=== PATIENT | female | born 1940 | race Caucasian/White ===

== ENCOUNTER 2018-04-08 17:11 | Inpatient (IN) ==
--- NOTE | 2018-04-08 17:53 | Emergency Department Note ---
Disposition Clinical Impression: Urinary tract infection, Delirium Disposition: Still a Patient Condition: Fair Referrals: Gabrielle Sawyer MD [Primary Care Provider] - Forms: ED Satisfaction Letter General Adult HPI - General Chief complaint: ED Urogenital-Female Stated complaint: "UTI sent by " Time Seen by Provider: 04/08/18 17:36 - History of Present Illness Pain Scale: 6 - Related Data Allergies Allergy/AdvReac Type Severity Reaction Status Date / Time No Known Allergies Allergy Verified 04/08/18 17:22 Course Vital Signs Temperature 98.3 F 04/08/18 17:16 Pulse Rate 93 04/08/18 17:16 Respiratory Rate 22 04/08/18 17:16 Blood Pressure 191/70 04/08/18 17:16 O2 Sat by Pulse Oximetry 97 04/08/18 17:16 Temperature 98.3 F 04/08/18 17:16 Pulse Rate 93 04/08/18 17:16 Respiratory Rate 22 04/08/18 17:16 Blood Pressure 191/70 04/08/18 17:16 O2 Sat by Pulse Oximetry 97 04/08/18 17:16 Oxygen Delivery Oxygen Delivery Room Air Medical Decision Making - Lab Data Lab Results 04/08/18 Range/Units 17:54 Urine Color Dark Yellow (Yellow) Urine Clarity Cloudy A (Clear) Urine pH 6.0 (5.0-8.0) pH Units Ur Specific [place] > 1.030 H (1.010-1.025) Urine Protein 30 H (Neg-Trace) mg/dL Urine Glucose (UA) Normal (Normal) mg/dL Urine Ketones Trace H (Negative) mg/dL Urine Blood Negative (Negative) Urine Nitrite Negative (Negative) Urine Bilirubin Small H (Negative) Urine Urobilinogen Normal (Normal) mg/dL Ur Leukocyte Esterase Large H (Negative) Urine Microscopic RBC 3-5 H (0-3) per hpf Urine Microscopic WBC 50-100 H (0-3) per hpf Ur Squamous Epith Cells Many H (None-Few) per lpf Urine Bacteria Few (None-Few) per hpf Hyaline Casts Few (None-Few) per lpf Attestation Statement - Attestation Attestation: I examined this patient and my medical decision-making was reviewed with the Resident Physician. I agree with the documented findings, disposition and treatment plan as described except to the extent set forth below. [id number] time provided Patient arrives in the care of her family with confusion. She was sent at the recommendation of her primary care provider. It was suspected that she has a UTI. The patient appears in no acute distress on arrival to the medical treatment area 18:24: Care will be endorsed to the oncoming physician at 19:00 pending labs. I anticipate this patient requiring admission due to confusion secondary to UTI.
--- NOTE | 2018-04-08 18:02 | Emergency Department Note ---
Disposition Clinical Impression: Delirium Urinary tract infection Qualifiers: Urinary tract infection type: site unspecified Hematuria presence: without hematuria Qualified Code(s): N39.0 - Urinary tract infection, site not specified Disposition: Still a Patient Condition: Fair Forms: ED Satisfaction Letter Time of Disposition: 18:25 General Adult HPI - General Chief complaint: ED Urogenital-Female Stated complaint: "UTI sent by " Time Seen by Provider: 04/08/18 17:36 Nursing Notes Reviewed: Yes Vital Signs Reviewed: Yes - History of Present Illness HPI Narrative: 77-year-old female presents from primary care provider's office for continued evaluation of confusion and suspected UTI. Patient lives at home with her daughter who is her primary nuclear station operator. History of dementia as well as diabetes. Per patient's daughter, she is more confused now than typical. Patient notes pain with urination over last several days with bilateral flank and CVA pain. No fevers. She does have generalized weakness which she attributes to her fall from standing to knees 4 days ago; no head trauma, no loss of consciousness. Patient also has a cough. No history of TIA, CVA, ACS, COPD. ROS: Positive: As above Negative: Fevers, chills, nausea, vomiting, chest pains, palpitations, abdominal pain, change in bowel habits Pain Scale: 6 - Related Data Allergies Allergy/AdvReac Type Severity Reaction Status Date / Time No Known Allergies Allergy Verified 04/08/18 17:22 All systems ED: reviewed and negative except as stated. Review of Systems: As Per HPI Physical Exam Vital Signs Reviewed General: Patient is alert, oriented, and in no acute distress. She is pacing around the room with her walker. Head: atraumatic, normocephalic Eye: normal appearance, PERRL, EOMI, no scleral icterus, no conjunctival injection ENT: mucous membranes moist, normal external ear exam Neck: normal inspection, trachea midline, full ROM Chest: normal inspection, symmetric chest rise Respiratory: Good respiratory effort. Bilateral breath sounds are clear without wheezing, crackles, or rhonchi. Cardiovascular: Regular rate and rhythm. No clicks, rubs, gallops, or murmors. Normal heart sounds. Abdomen: Bowel sounds present normoactive x-4 quadrants. Abdomen is soft, nondistended. Right lower quadrant tenderness. Bilateral flank pain. Bilateral CVA tenderness. Musculoskeletal: Spontaneously moving all extremities. Skin: warm, dry, intact. Neuro: GCS 15. Alert. Oriented to self. Answering all questions however not always in agreement with her daughter at bedside. Psych: Patient's affect is appropriate for situation. Course Course Narrative: EKG dated 04/08/2018 at 18:06 interpreted as sinus rhythm with rate of 90. MD 148 , QTc 469. Borderline left axis. Left anterior fascicular block. Nonspecific ST-T changes. No previous EKG for comparison. Urinalysis is concerning for UTI. This likely is the cause of the patient's delirium in the setting of her background dementia. We will begin empiric IV Rocephin. Remainder of workup is pending. Care of patient endorsed to the oncoming physician, Dr. Brennan Bianchi. Pending: CBC, BMP, chest x-ray, administration of IV antibiotics Anticipated disposition: Admission for urinary tract infection with delirium. Vital Signs Temperature 98.3 F 04/08/18 17:16 Pulse Rate 93 04/08/18 17:16 Respiratory Rate 22 04/08/18 17:16 Blood Pressure 191/70 04/08/18 17:16 O2 Sat by Pulse Oximetry 97 04/08/18 17:16 Temperature 98.3 F 04/08/18 17:16 Pulse Rate 93 04/08/18 17:16 Respiratory Rate 22 04/08/18 17:16 Blood Pressure 191/70 04/08/18 17:16 O2 Sat by Pulse Oximetry 97 04/08/18 17:16 Oxygen Delivery Oxygen Delivery Room Air Medical Decision Making - Lab Data Lab Results 04/08/18 Range/Units 17:54 Urine Color Dark Yellow (Yellow) Urine Clarity Cloudy A (Clear) Urine pH 6.0 (5.0-8.0) pH Units Ur Specific [place] > 1.030 H (1.010-1.025) Urine Protein 30 H (Neg-Trace) mg/dL Urine Glucose (UA) Normal (Normal) mg/dL Urine Ketones Trace H (Negative) mg/dL Urine Blood Negative (Negative) Urine Nitrite Negative (Negative) Urine Bilirubin Small H (Negative) Urine Urobilinogen Normal (Normal) mg/dL Ur Leukocyte Esterase Large H (Negative) Urine Microscopic RBC 3-5 H (0-3) per hpf Urine Microscopic WBC 50-100 H (0-3) per hpf Ur Squamous Epith Cells Many H (None-Few) per lpf Urine Bacteria Few (None-Few) per hpf Hyaline Casts Few (None-Few) per lpf
[2018-04-08 18:04] LABS: Bilirubin,Urine Small (Negative); Blood,Urine Negative (Negative); Clarity,Urine Cloudy (Clear); Color,Urine Dark Yellow (Yellow); Glucose,Urine (UA) Normal (Normal); Ketones,Urine Trace mg/dL (Negative); Leukocyte Esterase,Urine Large (Negative); Nitrite,Urine Negative (Negative); Protein,Urine 30 mg/dL (Neg-Trace); Specific Gravity,Urine > 1.030 (1.010-1.025); Urobilinogen,Urine Normal (Normal)
[2018-04-08 18:06] LABS: Bacteria,Urine Few per hpf (None-Few); Hyaline Casts,Urine Few per lpf (None-Few); Squamous Epithelial Cell,Urine Many per lpf (None-Few); WBC,Urine 50-100 per hpf (0-3)
[2018-04-08] MEDS ORDERED: cefTRIAXone 2,000 MG in 0.9 % Sodium Chloride Mini Bag 100 ML IVPB ONE (18:47)
[2018-04-08 18:54] LABS: Basophils # 0.1 K/mcL (0.0-0.2); Basophils % 0.6 %; Eosinophils # 0.1 K/mcL (0.0-0.6); Eosinophils % 0.9 %; Hematocrit 37.3 % (35.3-44.9); Hemoglobin 12.4 g/dL (11.5-15.4); Immature Granulocytes % 0.1 % (0-4); Lymphocytes # 1.9 K/mcL (0.6-4.6); Lymphocytes % 25.2 %; Mean Corpuscular HGB Conc 33.2 g/dL (31.6-35.5); Mean Corpuscular Hemoglobin 28.8 pg (28.0-33.3); Mean Corpuscular Volume 86.7 fL (83.0-100.0); Monocytes # 0.8 K/mcL (0.0-1.3); Monocytes % 10.9 %; Neutrophils # 4.8 K/mcL (1.6-8.9); Platelet Count 163 K/mcL (140-400); Red Cell Distribution Width 14.3 % (11.5-14.5); Segmented Neutrophils % 62.3 %
[2018-04-08 19:14] LABS: BUN/Creatinine Ratio 37 (6-26); Blood Urea Nitrogen 23 mg/dL (8-23); Calcium 9.7 mg/dL (8.6-10.3); Carbon Dioxide 22 mEq/L (23-29); Chloride 106 mEq/L (98-107); Glucose 190 mg/dL (70-105); Osmolality,Calculated 297 (280-300); Potassium 3.6 mEq/L (3.5-5.1); Sodium 139 mEq/L (136-145); eGFR For Non-African Americans > 60 (> 60)
[2018-04-08] MEDS ORDERED: 0.9 % Sodium Chloride 500 ML IVC ONE (19:51)
--- NOTE | 2018-04-08 20:08 | Emergency Department Note ---
Disposition Clinical Impression: Delirium Urinary tract infection Qualifiers: Urinary tract infection type: site unspecified Hematuria presence: without hematuria Qualified Code(s): N39.0 - Urinary tract infection, site not specified Disposition: Admitted As Inpatient Condition: Fair Referrals: Gabrielle Sawyer MD [Primary Care Provider] - Forms: ED Satisfaction Letter Time of Disposition: 21:08 General Adult HPI - General Chief complaint: ED Urogenital-Female Stated complaint: "UTI sent by " Time Seen by Provider: 04/08/18 17:36 Nursing Notes Reviewed: Yes Vital Signs Reviewed: Yes - History of Present Illness Pain Scale: 6 - Related Data Home Medications Medication Instructions Recorded Confirmed Aspirin Enteric Coated [Aspirin EC] 81 mg PO DAILY 04/08/18 04/08/18 Atorvastatin [Lipitor] 40 mg PO HS 04/08/18 04/08/18 Docusate Sodium [Stool Softener] 100 mg PO DAILY PRN 04/08/18 04/08/18 Fluticasone Propionate Nasal 1 spr NS DAILY 04/08/18 04/08/18 [Flonase] Gabapentin [Neurontin] 100 mg PO TID 04/08/18 04/08/18 Insulin Glargine,Hum.rec.anlog 23 units SQ DAILY 04/08/18 04/08/18 [Lantus Solostar] Memantine [Namenda] 5 mg PO BID 04/08/18 04/08/18 Multivit-Min/FA/Lycopen/Lutein 1 tab PO DAILY 04/08/18 04/08/18 [Centrum Silver Tablet] Sertraline [Zoloft] 100 mg PO DAILY 04/08/18 04/08/18 metFORMIN [Glucophage] 500 mg PO TIDWM 04/08/18 04/08/18 Allergies Allergy/AdvReac Type Severity Reaction Status Date / Time No Known Allergies Allergy Verified 04/08/18 17:22 Course Course Narrative: Patient signed out to me by day physician Dr. Khan. Patient is pending admission for UTI with confusion. Upon my examination of the patient, she has had more difficulty with word finding over the last several days. 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 She did state that the patient had a fall several days ago on the stairs but denies hitting her head at that time. We will go ahead and add a CT of the head to rule out any intracranial abnormalities prior to admission. - Reevaluation(s) Reevaluation #1: Patient CT scan unremarkable. We will admit for UTI, delirium. Urine culture added. Discussed with hospitalist Dr. Dickinsno who has accepted patient for admission. Time: 21:07 Vital Signs Temperature 98.3 F 04/08/18 17:16 Pulse Rate 93 04/08/18 17:16 Respiratory Rate 22 04/08/18 17:16 Blood Pressure 191/70 04/08/18 17:16 O2 Sat by Pulse Oximetry 97 04/08/18 17:16 Temperature 98.3 F 04/08/18 19:50 Pulse Rate 93 04/08/18 19:50 Respiratory Rate 22 04/08/18 19:50 Blood Pressure 191/70 04/08/18 19:50 O2 Sat by Pulse Oximetry 97 04/08/18 19:50 Oxygen Delivery Oxygen Delivery Room Air Medical Decision Making - Medical Records Medical records reviewed: Yes I reviewed the patient's medical records. - Lab Data Lab results reviewed: Yes I reviewed the patient's lab results. Result diagrams: 04/08/18 18:38 04/08/18 18:38 Lab Results 04/08/18 04/08/18 04/08/18 Range/Units 17:54 18:38 18:38 WBC 7.7 (4.3-11.1) K/mcL RBC 4.30 (3.82-4.97) M/mcL Hgb 12.4 (11.5-15.4) g/dL Hct 37.3 (35.3-44.9) % MCV 86.7 (83.0-100.0) fL MCH 28.8 (28.0-33.3) pg MCHC 33.2 (31.6-35.5) g/dL RDW 14.3 (11.5-14.5) % Plt Count 163 (140-400) K/mcL MPV 10.0 (9.4-12.4) fL Immature Gran % 0.1 (0-4) % Seg Neutrophils % 62.3 % Lymphocytes % 25.2 % Monocytes % 10.9 % Eosinophils % 0.9 % Basophils % 0.6 % Neutrophils # 4.8 (1.6-8.9) K/mcL Lymphocytes # 1.9 (0.6-4.6) K/mcL Monocytes # 0.8 (0.0-1.3) K/mcL Eosinophils # 0.1 (0.0-0.6) K/mcL Basophils # 0.1 (0.0-0.2) K/mcL Sodium 139 (136-145) mEq/L Potassium 3.6 (3.5-5.1) mEq/L Chloride 106 (98-107) mEq/L Carbon Dioxide 22 L (23-29) mEq/L BUN 23 (8-23) mg/dL Creatinine 0.62 (0.60-1.20) mg/dL Est GFR ( Amer) > 60 (> 60) Est GFR (Non-Af Amer) > 60 (> 60) BUN/Creatinine Ratio 37 H (6-26) Glucose 190 H (70-105) mg/dL Calculated Osmolality 297 (280-300) Calcium 9.7 (8.6-10.3) mg/dL Urine Color Dark Yellow (Yellow) Urine Clarity Cloudy A (Clear) Urine pH 6.0 (5.0-8.0) pH Units Ur Specific [place] > 1.030 H (1.010-1.025) Urine Protein 30 H (Neg-Trace) mg/dL Urine Glucose (UA) Normal (Normal) mg/dL Urine Ketones Trace H (Negative) mg/dL Urine Blood Negative (Negative) Urine Nitrite Negative (Negative) Urine Bilirubin Small H (Negative) Urine Urobilinogen Normal (Normal) mg/dL Ur Leukocyte Esterase Large H (Negative) Urine Microscopic RBC 3-5 H (0-3) per hpf Urine Microscopic WBC 50-100 H (0-3) per hpf Ur Squamous Epith Cells Many H (None-Few) per lpf Urine Bacteria Few (None-Few) per hpf Hyaline Casts Few (None-Few) per lpf - Radiology Data Radiology results reviewed: Yes I reviewed the patient's radiology results. Chest X-Ray 04/08/18 17:58 IMPRESSION: No acute process. D/ / Pantera Angulo MD / Pantera Angulo MD Interpreting Provider: Pantera Angulo MD Head CT 04/08/18 19:34 IMPRESSION: No acute intracranial abnormality. Diffuse atrophic changes with findings suggesting chronic microvascular ischemia D/ / Charan Mott MD / Charan Mott MD Interpreting Provider: Charan Mott MD
[2018-04-08] MEDS ORDERED: Naloxone 0.4 MG/ML INJ IVP PRN (22:32)
[2018-04-08] MEDS ORDERED: *HR* Dextrose 50 % in Water (Syg) 50 ML SYRINGE IVP PRN (22:35)
[2018-04-08] MEDS ORDERED: D5% in Water 1,000 ML IVC PRN (22:35)
[2018-04-08] MEDS ORDERED: Dextrose Gel 15 GM/37.5 ML TUBE PO PRN ×2 (22:35)
[2018-04-08] MEDS ORDERED: D5% in 0.45% NACL 1,000 ML IVC SCH (22:45)
--- NOTE | 2018-04-08 23:02 | Internal Med History&Physical ---
Date of Encounter: 04/08/18 Time of Encounter: 23:00 Internal Medicine - H&P: HPI Chief complaint: AMS History of present illness: Ms. Scott is a 77 year old female with a past medical history of diabetes and dementia who presents to the ED due to change in mental status. Patient currently is a poor historian, alert oriented 1 and therefore the history was obtained from the patient's daughter at bedside. Patient's daughter states that at baseline she is alert oriented 3 and at times has difficulty completing her sentences and does have difficulty with memory. Daughter reports her recent change in mental status seems to have started this last Thursday when her grandchildren noticed that she seemed to be a little bit off. However symptoms became worse last night. Patient was accusing her daughter of stealing her car. Daughter also does report that the patient was complaining of some back pain about a week ago. A x-ray was performed which showed arthritic changes. Patient also endorsed to her daughter that she felt like she was coming down with a urinary tract infection. However, the daughter today after dropping off her mother at the ED went home and discovered that the patient may not been taking her medications since Thursday after she reviewed her pillbox. A rash on the back that was also noted today in the ED. Patient's labs are otherwise unremarkable except for a UA that is suspicious for UTI. CT scan of the head was performed which was negative for any acute changes. Patient does not demonstrate any focal deficits either. No other reports of fever, chills, nausea, vomiting, abdominal pain, chest pain or diarrhea. Her vitals were otherwise stable. Past Med Surg Social Fam HX - Past Medical History Medical history: cancer, dementia, diabetes, hyperlipidemia Additional medical history: Iyer's Palsy - Social History Smoking Status: Never smoker Alcohol use: none Drug use: none Internal Medicine - H&P: Meds Aspirin Enteric Coated [Aspirin EC] 81 mg PO DAILY 04/08/18 [History] Atorvastatin [Lipitor] 40 mg PO HS 04/08/18 [History] Docusate Sodium [Stool Softener] 100 mg PO DAILY PRN 04/08/18 [History] Fluticasone Propionate Nasal [Flonase] 1 spr NS DAILY 04/08/18 [History] Gabapentin [Neurontin] 100 mg PO TID 04/08/18 [History] Insulin Glargine,Hum.rec.anlog [Lantus Solostar] 23 units SQ DAILY 04/08/18 [ History] Memantine [Namenda] 5 mg PO BID 04/08/18 [History] Multivit-Min/FA/Lycopen/Lutein [Centrum Silver Tablet] 1 tab PO DAILY 04/08/18 [ History] Sertraline [Zoloft] 100 mg PO DAILY 04/08/18 [History] metFORMIN [Glucophage] 500 mg PO TIDWM 04/08/18 [History] Dorzolamide/Timolol [Cosopt] 1 drop BOTH EYES BID 04/09/18 [History] valACYclovir [Valtrex] 1,000 mg PO TID 4 Days #12 tablet 04/12/18 [Rx] valACYclovir [Valtrex] 1,000 mg PO TID 4 Days #24 tablet 04/12/18 [Rx] 3 Allergy/AdvReac Type Severity Reaction Status Date / Time No Known Allergies Allergy Verified 04/08/18 17:22 All Systems PM: A 10-system review of systems was performed and is negative for pertinent findings except as documented above in the HPI. - Constitutional Constitutional: no chills, no fever(s), no night sweats - EENT Eyes: no change in vision, no discharge, no pain, no photophobia Ears: no ear discharge, no ear pain, no tinnitus Nose, mouth and throat: no dysphagia, no nasal discharge, no neck pain, no sore throat - Cardiovascular Cardiovascular ROS IM: no chest pain, no diaphoresis, no dyspnea, no lightheadedness, no palpitations, no syncope - Respiratory Respiratory: no cough, no dyspnea, no wheezing, no excessive phlegm production - Gastrointestinal Gastrointestinal: no abdominal pain, no diarrhea, no hematemesis, no hematochezia, no melena, no nausea, no vomiting - Genitourinary Genitourinary: no change in urinary stream, no dysuria, no flank pain, no hematuria - Musculoskeletal Musculoskeletal ROS IM: no numbness, no tingling - Integumentary Integumentary IM: no rash, no unusual bruising - Neurological Neurological ROS: no confusion, no convulsions, no focal weakness, no numbness, no tingling, no tremor(s) - Hematologic/Lymphatic Hematologic/Lymphatic: no easy bruising - Constitutional Vitals: Temp Pulse Resp BP Pulse Ox 98.3 F 93 20 160/72 97 04/08/18 19:50 04/08/18 19:50 04/08/18 22:29 04/08/18 22:29 04/08/18 19:50 Exam: General: Alert and oriented 1 Skin: Erythematous rash having a hives in appearance noted on the right flank in a dermatomal distribution that does not cross midline.. HEENT:EOM, pupils equal, round and reactive. Cardiovascular:Normal S1 & S2, no rubs, murmurs or gallops. No JVD. Pulse regular. Lungs: Normal breath sounds, no wheezes or crackles. Abdomen:Soft, non-tender, no rigidity. Extremities:No deformity, no edema or tenderness, no joint swelling or clubbing. Neurological: Mild right-sided facial droop; and motor skills. Pulses:Carotid and radial pulses normal +2. Rest of the physical exam is non contributory Internal Med - H&P Results - Labs CBC & Chem 7: 04/11/18 04:01 04/11/18 04:01 - Assessment and plan (1) Altered mental status, unspecified Current Visit: Yes Status: Acute Assessment and plan: Altered mental status likely secondary to underlying UTI. Patient appears to have dementia at baseline and is a poor historian even though she does not endorse any symptoms suspicious for infectious etiology. Patient has right- sided facial droop but according to family appears to be chronic. CT scan of the head was unremarkable for any acute changes. Chest x-ray was unremarkable. Patient does have not have evidence of a toxic or metabolic derangement to explain her symptoms. We will treat underlying cause. Qualifiers: Altered mental status type: disorientation Qualified Code(s): R41.0 - Disorientation, unspecified Code(s): R41.82 - Altered mental status, unspecified (2) Urinary tract infection Current Visit: Yes Status: Acute Assessment and plan: Patient does endorse dysuria however again difficult to assess given her mental status. Patient received 1 dose of Rocephin in the ED. Urine cultures are pending. We will continue antibiotic treatment for now. Qualifiers: Urinary tract infection type: site unspecified Hematuria presence: without hematuria Qualified Code(s): N39.0 - Urinary tract infection, site not specified (3) Rash and nonspecific skin eruption Current Visit: Yes Status: Acute Assessment and plan: Large erythematous 6 cm in length rash along the L1-L2 dermatome. Does not cross midline. Rash begins near the spine and spreads anteriorly along the right flank. Patient does not endorse significant burning or itching. However given its dermatomal distribution pattern, concern for zoster infection. We will place Patient on contact droplet precautions. We will consider treatment with valacyclovir versus ID consult. (4) Dementia Current Visit: Yes Status: Acute Assessment and plan: Baseline mental status. Continue home medication Qualifiers: Qualified Code(s): F03.90 - Unspecified dementia without behavioral disturbance (5) Diabetes mellitus Current Visit: Yes Status: Acute Assessment and plan: Blood glucose checks. Sliding scale insulin Qualifiers: Diabetes mellitus type: type 2 Diabetes mellitus presentation specialist insulin use: without presentation specialist use Diabetes mellitus complication status: without complication Qualified Code(s): E11.9 - Type 2 diabetes mellitus without complications (6) DVT prophylaxis Current Visit: Yes Status: Acute Assessment and plan: Subcutaneous heparin - Time Spent With Patient Total time spent is greater than 50% in coordination of care (as documented) at patient's floor/unit and/or counseling patient:
--- NOTE | 2018-04-08 23:46 | Emergency Department Note ---
Disposition Clinical Impression: Delirium Urinary tract infection Qualifiers: Urinary tract infection type: site unspecified Hematuria presence: without hematuria Qualified Code(s): N39.0 - Urinary tract infection, site not specified Disposition: Admitted As Inpatient Condition: Fair Referrals: Gabrielle Sawyer MD [Primary Care Provider] - General Adult HPI - General Chief complaint: ED Urogenital-Female Stated complaint: "UTI sent by " Time Seen by Provider: 04/08/18 17:36 Nursing Notes Reviewed: Yes Vital Signs Reviewed: Yes - History of Present Illness Pain Scale: 0 - Related Data Home Medications Medication Instructions Recorded Confirmed Aspirin Enteric Coated [Aspirin EC] 81 mg PO DAILY 04/08/18 04/08/18 Atorvastatin [Lipitor] 40 mg PO HS 04/08/18 04/08/18 Docusate Sodium [Stool Softener] 100 mg PO DAILY PRN 04/08/18 04/08/18 Fluticasone Propionate Nasal 1 spr NS DAILY 04/08/18 04/08/18 [Flonase] Gabapentin [Neurontin] 100 mg PO TID 04/08/18 04/08/18 Insulin Glargine,Hum.rec.anlog 23 units SQ DAILY 04/08/18 04/08/18 [Lantus Solostar] Memantine [Namenda] 5 mg PO BID 04/08/18 04/08/18 Multivit-Min/FA/Lycopen/Lutein 1 tab PO DAILY 04/08/18 04/08/18 [Centrum Silver Tablet] Sertraline [Zoloft] 100 mg PO DAILY 04/08/18 04/08/18 metFORMIN [Glucophage] 500 mg PO TIDWM 04/08/18 04/08/18 Allergies Allergy/AdvReac Type Severity Reaction Status Date / Time No Known Allergies Allergy Verified 04/08/18 17:22 Past Medical History - Past Medical History Medical history: Reports: cancer, dementia, diabetes, hyperlipidemia Surgical history: Reports: breast surgery - Social History Smoking Status: Never smoker Alcohol use: Reports: none Drug use: Reports: none Physical Exam - General General appearance: alert Course Vital Signs Temperature 98.3 F 04/08/18 17:16 Pulse Rate 93 04/08/18 17:16 Respiratory Rate 22 04/08/18 17:16 Blood Pressure 191/70 04/08/18 17:16 O2 Sat by Pulse Oximetry 97 04/08/18 17:16 Temperature 98.3 F 04/08/18 23:27 Pulse Rate 74 04/08/18 23:27 Respiratory Rate 16 04/08/18 23:27 Blood Pressure 159/84 04/08/18 23:27 O2 Sat by Pulse Oximetry 97 04/08/18 23:27 Oxygen Delivery Oxygen Delivery Room Air Medical Decision Making - MDM Narrative Medical decision making narrative: I, Dwight Bianchi, examined this patient and my medical decision-making was reviewed with the SUPERVISOR VARNISH/PA/Advanced Practice Nurse/Resident Physician. I agree with the documented findings, disposition and treatment plan as described except to the extent set forth below. 77-year-old female received in sign out at the start of my shift pending admission to the hospital. Patient is being evaluated for possible delirium secondary to urinary tract infection. Patient has a history of dementia. On reevaluation of the patient and the medical record we obtained a CT of the head to rule out intracranial hemorrhage or mass. This was negative. Patient admitted to the hospitalist for further care and evaluation. - Medical Records Medical records reviewed: Yes I reviewed the patient's medical records. - Lab Data Lab results reviewed: Yes I reviewed the patient's lab results. Result diagrams: 04/08/18 18:38 04/08/18 18:38 Lab Results 04/08/18 04/08/18 04/08/18 Range/Units 17:54 18:38 18:38 WBC 7.7 (4.3-11.1) K/mcL RBC 4.30 (3.82-4.97) M/mcL Hgb 12.4 (11.5-15.4) g/dL Hct 37.3 (35.3-44.9) % MCV 86.7 (83.0-100.0) fL MCH 28.8 (28.0-33.3) pg MCHC 33.2 (31.6-35.5) g/dL RDW 14.3 (11.5-14.5) % Plt Count 163 (140-400) K/mcL MPV 10.0 (9.4-12.4) fL Immature Gran % 0.1 (0-4) % Seg Neutrophils % 62.3 % Lymphocytes % 25.2 % Monocytes % 10.9 % Eosinophils % 0.9 % Basophils % 0.6 % Neutrophils # 4.8 (1.6-8.9) K/mcL Lymphocytes # 1.9 (0.6-4.6) K/mcL Monocytes # 0.8 (0.0-1.3) K/mcL Eosinophils # 0.1 (0.0-0.6) K/mcL Basophils # 0.1 (0.0-0.2) K/mcL Sodium 139 (136-145) mEq/L Potassium 3.6 (3.5-5.1) mEq/L Chloride 106 (98-107) mEq/L Carbon Dioxide 22 L (23-29) mEq/L BUN 23 (8-23) mg/dL Creatinine 0.62 (0.60-1.20) mg/dL Est GFR ( Amer) > 60 (> 60) Est GFR (Non-Af Amer) > 60 (> 60) BUN/Creatinine Ratio 37 H (6-26) Glucose 190 H (70-105) mg/dL POC Glucose (70-99) mg/dL Calculated Osmolality 297 (280-300) Calcium 9.7 (8.6-10.3) mg/dL Urine Color Dark Yellow (Yellow) Urine Clarity Cloudy A (Clear) Urine pH 6.0 (5.0-8.0) pH Units Ur Specific [place] > 1.030 H (1.010-1.025) Urine Protein 30 H (Neg-Trace) mg/dL Urine Glucose (UA) Normal (Normal) mg/dL Urine Ketones Trace H (Negative) mg/dL Urine Blood Negative (Negative) Urine Nitrite Negative (Negative) Urine Bilirubin Small H (Negative) Urine Urobilinogen Normal (Normal) mg/dL Ur Leukocyte Esterase Large H (Negative) Urine Microscopic RBC 3-5 H (0-3) per hpf Urine Microscopic WBC 50-100 H (0-3) per hpf Ur Squamous Epith Cells Many H (None-Few) per lpf Urine Bacteria Few (None-Few) per hpf Hyaline Casts Few (None-Few) per lpf 04/08/18 Range/Units 20:12 WBC (4.3-11.1) K/mcL RBC (3.82-4.97) M/mcL Hgb (11.5-15.4) g/dL Hct (35.3-44.9) % MCV (83.0-100.0) fL MCH (28.0-33.3) pg MCHC (31.6-35.5) g/dL RDW (11.5-14.5) % Plt Count (140-400) K/mcL MPV (9.4-12.4) fL Immature Gran % (0-4) % Seg Neutrophils % % Lymphocytes % % Monocytes % % Eosinophils % % Basophils % % Neutrophils # (1.6-8.9) K/mcL Lymphocytes # (0.6-4.6) K/mcL Monocytes # (0.0-1.3) K/mcL Eosinophils # (0.0-0.6) K/mcL Basophils # (0.0-0.2) K/mcL Sodium (136-145) mEq/L Potassium (3.5-5.1) mEq/L Chloride (98-107) mEq/L Carbon Dioxide (23-29) mEq/L BUN (8-23) mg/dL Creatinine (0.60-1.20) mg/dL Est GFR ( Amer) (> 60) Est GFR (Non-Af Amer) (> 60) BUN/Creatinine Ratio (6-26) Glucose (70-105) mg/dL POC Glucose 164 H (70-99) mg/dL Calculated Osmolality (280-300) Calcium (8.6-10.3) mg/dL Urine Color (Yellow) Urine Clarity (Clear) Urine pH (5.0-8.0) pH Units Ur Specific [place] (1.010-1.025) Urine Protein (Neg-Trace) mg/dL Urine Glucose (UA) (Normal) mg/dL Urine Ketones (Negative) mg/dL Urine Blood (Negative) Urine Nitrite (Negative) Urine Bilirubin (Negative) Urine Urobilinogen (Normal) mg/dL Ur Leukocyte Esterase (Negative) Urine Microscopic RBC (0-3) per hpf Urine Microscopic WBC (0-3) per hpf Ur Squamous Epith Cells (None-Few) per lpf Urine Bacteria (None-Few) per hpf Hyaline Casts (None-Few) per lpf - Radiology Data Radiology results reviewed: Yes I reviewed the patient's radiology results.
[2018-04-09] MEDS: *HR* Heparin 5,000 UNIT/ML VIAL SQ SCH ×4 (00:46→20:01)
[2018-04-09] MEDS: Insulin LISPRO 300 UNITS/3 ML VIAL SQ SCH ×4 (00:46→16:11)
[2018-04-09] MEDS: valACYclovir 500 MG TABLET PO SCH ×4 (02:08→20:01)
[2018-04-09 05:50] LABS: Basophils # 0.1 K/mcL (0.0-0.2); Basophils % 0.6 %; Eosinophils # 0.1 K/mcL (0.0-0.6); Eosinophils % 1.7 %; Hemoglobin 12.3 g/dL (11.5-15.4); Immature Granulocytes % 0.4 % (0-4); Lymphocytes # 1.8 K/mcL (0.6-4.6); Lymphocytes % 23.4 %; Mean Corpuscular HGB Conc 33.2 g/dL (31.6-35.5); Mean Corpuscular Hemoglobin 29.4 pg (28.0-33.3); Mean Corpuscular Volume 88.5 fL (83.0-100.0); Monocytes % 12.5 %; Neutrophils # 4.8 K/mcL (1.6-8.9); Platelet Count 142 K/mcL (140-400); Red Blood Count 4.18 M/mcL (3.82-4.97); Red Cell Distribution Width 14.1 % (11.5-14.5); Segmented Neutrophils % 61.4 %
[2018-04-09 07:58] LABS: Alanine Aminotransferase 16 Units/L (7-52); Albumin 3.4 g/dL (3.5-5.7); Albumin/Globulin Ratio 1.2 (1.1-2.2); Alkaline Phosphatase 64 Units/L (34-104); Aspartate Amino Transferase 19 Units/L (13-39); BUN/Creatinine Ratio 29 (6-26); Bilirubin,Total 1.7 mg/dL (0.3-1.0); Blood Urea Nitrogen 15 mg/dL (8-23); Calcium 8.9 mg/dL (8.6-10.3); Carbon Dioxide 22 mEq/L (23-29); Chloride 106 mEq/L (98-107); Globulin 2.9 g/dL (2.4-3.5); Glucose 236 mg/dL (70-105); Magnesium 1.5 mg/dL (1.6-2.6); Osmolality,Calculated 292 (280-300); Potassium 3.7 mEq/L (3.5-5.1); Sodium 137 mEq/L (136-145); Total Protein 6.3 g/dL (6.4-8.9); eGFR For Non-African Americans > 60 (> 60)
[2018-04-09] MEDS: Aspirin Enteric Coated 81 MG Tablet PO SCH (09:22)
[2018-04-09] MEDS: Fluticasone Propionate Nasal 50 MCG/SPRAY BOTTLE NS SCH (09:22)
[2018-04-09] MEDS: Multivit/Ca/Min/Fe/FA 1 TAB TABLET PO SCH (09:22)
--- NOTE | 2018-04-09 10:57 | Internal Med Progress Note ---
Hospitalist Progress Note - Encounter Date of Encounter: 04/09/18 Time of Encounter: 10:52 - Subjective Interval History: Patient admitting to dysuria however, for historian due to dementia. She has not mentioned right flank discomfort, or rash but there is concern for his ulcers infection. Discussed plan of care but I am unsure whether the patient has the capacity to understand. We will wait for family to further discuss plan of care this afternoon. - Exam Vitals: Temp Pulse Resp BP Pulse Ox 99.7 F H 96 19 132/61 93 04/09/18 07:48 04/09/18 07:48 04/09/18 07:48 04/09/18 07:48 04/09/18 07:48 Exam: PHYSICAL EXAMINATION: GENERAL: The patient is an elderly, confused obese female in no apparent distress. She is alert to self only HEENT: Head is normocephalic and atraumatic. Extraocular muscles are intact. Pupils are equal, round, and reactive to light and accommodation NECK: Supple. No carotid bruits. No lymphadenopathy or thyromegaly. LUNGS: Clear to auscultation. HEART: Regular rate and rhythm, S1, S2 without murmur. ABDOMEN: Soft, nontender, and nondistended. Positive bowel sounds. No hepatosplenomegaly was noted. 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 - Assessment and Plan (1) Urinary tract infection Current Visit: Yes Status: Acute Assessment and Plan: Patient presents from family physician, found to have urinary tract infection Patient endorses dysuria however given mental status is difficult to assess for any additional urinary symptoms Urinalysis with large leukocyte esterase, patient mildly febrile 99.7 however, she appears nontoxic and is hemodynamically stable, and does not have leukocytosis Continue with Rocephin 1 g daily, send urine for culture and follow, adjust antibiotics accordingly Daily labs IV fluids (2) Altered mental status, unspecified Current Visit: Yes Status: Acute Assessment and Plan: Altered mental status likely secondary to underlying UTI However, patient has dementia, unclear whether or not mental status is altered above baseline No family at bedside at this time, discussed with family this afternoon Patient has right-sided facial droop but according to family appears to be chronic 2/[address] scan of the head was unremarkable for any acute changes. Chest x-ray was unremarkable. Patient does have not have evidence of a toxic or metabolic derangement to explain her symptoms Monitor for further changes of mental status With unclear baseline, and impairments and patient's general cognitive functioning as well as recent diagnosis of herpes zoster's (shingles) herpes zoster encephalitis cannot be ruled out; patient artery taking valacyclovir; unclear when zoster is vesicular eruption occurred however (3) Rash and nonspecific skin eruption Current Visit: Yes Status: Acute Assessment and Plan: Large erythematous 6 cm in length rash along the L1-L2 dermatome. Does not cross midline. Rash begins near the spine and spreads anteriorly along the right flank. pain, burning associated with rash Given its dermatomal distribution pattern, consider zoster infection. Continue contact/droplet precautions -Continue with valacyclovir treatment -Consult infectious disease for further evaluation and recommendations (4) Dementia Current Visit: Yes Status: Acute Assessment and Plan: Unclear of Baseline mental status. Continue home dementia medication (5) Diabetes mellitus Current Visit: Yes Status: Acute Assessment and Plan: Per history, Blood glucose checks. Sliding scale insulin (6) DVT prophylaxis Current Visit: Yes Status: Acute Assessment and Plan: cont Subcutaneous heparin - Time Spent with Patient Total time spent is greater than 50% in coordination of care (as documented) at patient's floor/unit and/or counseling patient: Internal Medicine: Result - Labs CBC & Chem 7: 04/09/18 04:33 04/09/18 06:50 Labs: Short CBC 04/09/18 Range/Units 04:33 WBC 7.8 (4.3-11.1) K/mcL Hgb 12.3 (11.5-15.4) g/dL Hct 37.0 (35.3-44.9) % Plt Count 142 (140-400) K/mcL Neutrophils # 4.8 (1.6-8.9) K/mcL BMP 04/09/18 06:50 Sodium 137 Potassium 3.7 Chloride 106 Carbon Dioxide 22 L BUN 15 Creatinine 0.52 L Glucose 236 H Calcium 8.9 Liver Function 04/09/18 Range/Units 06:50 Total Bilirubin 1.7 H (0.3-1.0) mg/dL AST 19 (13-39) Units/L ALT 16 (7-52) Units/L Alkaline Phosphatase 64 (34-104) Units/L Albumin 3.4 L (3.5-5.7) g/dL Consult Discharge Plan - Plan Referrals: Gabrielle Sawyer MD [Primary Care Provider] - 04/20/18 10:00 am () (1) Urinary tract infection Qualifiers: Urinary tract infection type: site unspecified Hematuria presence: without hematuria Qualified Code(s): N39.0 - Urinary tract infection, site not specified (2) Altered mental status, unspecified Qualifiers: Altered mental status type: disorientation Qualified Code(s): R41.0 - Disorientation, unspecified
[2018-04-09] MEDS: 0.9 % Sodium Chloride 1,000 ML IVC SCH (12:22)
[2018-04-09] MEDS: cefTRIAXone 1,000 MG in Water for inj. (sterile) 20 ML 10 ML IVP SCH (18:42)
[2018-04-09] MEDS ORDERED: *HR* LORazepam 2 MG/ML VIAL IVP ONE (19:46)
[2018-04-09] MEDS ORDERED: diazePAM 10 MG/2 ML SYRINGE IVP STA (21:12)
[2018-04-10] MEDS: 0.9 % Sodium Chloride 1,000 ML IVC SCH ×2 (05:27→22:01)
[2018-04-10] MEDS: *HR* Heparin 5,000 UNIT/ML VIAL SQ SCH ×3 (05:28→21:35)
[2018-04-10 05:32] LABS: Basophils % 0.6 %; Eosinophils % 0.6 %; Hematocrit 37.8 % (35.3-44.9); Hemoglobin 12.5 g/dL (11.5-15.4); Immature Granulocytes % 0.3 % (0-4); Lymphocytes # 1.5 K/mcL (0.6-4.6); Lymphocytes % 21.3 %; Mean Corpuscular HGB Conc 33.1 g/dL (31.6-35.5); Mean Corpuscular Hemoglobin 28.9 pg (28.0-33.3); Mean Corpuscular Volume 87.3 fL (83.0-100.0); Mean Platelet Volume 9.8 fL (9.4-12.4); Monocytes # 0.6 K/mcL (0.0-1.3); Monocytes % 8.9 %; Neutrophils # 4.7 K/mcL (1.6-8.9); Platelet Count 148 K/mcL (140-400); Red Blood Count 4.33 M/mcL (3.82-4.97); Red Cell Distribution Width 13.8 % (11.5-14.5); Segmented Neutrophils % 68.3 %
[2018-04-10 05:49] LABS: BUN/Creatinine Ratio 21 (6-26); Blood Urea Nitrogen 10 mg/dL (8-23); Calcium 8.8 mg/dL (8.6-10.3); Carbon Dioxide 21 mEq/L (23-29); Chloride 106 mEq/L (98-107); Glucose 235 mg/dL (70-105); Osmolality,Calculated 287 (280-300); Potassium 3.8 mEq/L (3.5-5.1); Sodium 135 mEq/L (136-145); eGFR For Non-African Americans > 60 (> 60)
--- NOTE | 2018-04-10 08:54 | Internal Med Progress Note ---
Hospitalist Progress Note - Encounter Date of Encounter: 04/10/18 Time of Encounter: 08:53 - Subjective Interval History: Patient admitting to dysuria however, poor historian due to dementia, unable to reach family. Now reporting pain in right flank, RLQ abdomen and RLE. Will attempt to contact POA this morning to Discussed plan of care. - Exam Vitals: Temp Pulse Resp BP Pulse Ox 98.2 F 78 18 161/85 97 04/10/18 07:49 04/10/18 07:49 04/10/18 07:49 04/10/18 07:49 04/10/18 07:49 Exam: PHYSICAL EXAMINATION: GENERAL: The patient is an elderly, confused obese female in no apparent distress. She is alert to self only HEENT: Head is normocephalic and atraumatic. Extraocular muscles are intact. Pupils are equal, round, and reactive to light and accommodation NECK: Supple. No carotid bruits. No lymphadenopathy or thyromegaly. LUNGS: Clear to auscultation. HEART: Regular rate and rhythm, S1, S2 without murmur. ABDOMEN: Soft, nontender, and nondistended. Positive bowel sounds. No hepatosplenomegaly was noted. 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 Rash becoming disseminated over night - Assessment and Plan (1) Urinary tract infection Current Visit: Yes Status: Acute Assessment and Plan: Patient presents from family physician, found to have urinary tract infection Patient endorses dysuria however given mental status is difficult to assess for any additional urinary symptoms Urinalysis with large leukocyte esterase, patient mildly febrile 99.7 yesterday , no fevers over night. Continue to appear nontoxic and remains hemodynamically stable, WBC 6.8 Continue with Rocephin 1 g daily, urine sent for culture; pending; follow, adjust antibiotics accordingly Daily labs IV fluids (2) Altered mental status, unspecified Current Visit: Yes Status: Acute Assessment and Plan: Altered mental status likely secondary to underlying UTI However, patient has dementia, unclear whether or not mental status is altered above baseline No family at bedside at this time, will again attempt to contact POA to discuss POC as well as d/c planning Patient has right-sided facial droop but according to family appears to be chronic 2/[address] scan of the head was unremarkable for any acute changes. Chest x-ray was unremarkable. Patient does have not have evidence of a toxic or metabolic derangement to explain her symptoms Monitor for further changes of mental status With unclear baseline, and impairments and patient's general cognitive functioning as well as recent diagnosis of herpes zoster's (shingles) herpes zoster encephalitis cannot be ruled out; patient already taking valacyclovir 1000mg TID PO; unclear when zosters vesicular eruption occurred however consult to ID for further evaluation and recommendations; appreciate consult. Rash appears to have worsened and spread over night. (3) Rash and nonspecific skin eruption Current Visit: Yes Status: Acute Assessment and Plan: Large erythematous rash with pustules and vesicles and minimal crust; appears to have spread overnight, Rash begins near the spine and spreads anteriorly along the right flank. now on Rt low abdomen pain, burning associated with rash;Pain worse today, with pain in RLE with movement or palpation Continue contact/droplet precautions -Continue with valacyclovir treatment 1000mg TID -Consult infectious disease for further evaluation and recommendations (4) Dementia Current Visit: Yes Status: Acute Assessment and Plan: Unclear of Baseline mental status. Continue home dementia meds (5) Diabetes mellitus Current Visit: Yes Status: Acute Assessment and Plan: Per history, Blood glucose checks. Sliding scale insulin (6) DVT prophylaxis Current Visit: Yes Status: Acute Assessment and Plan: cont Subcutaneous heparin - Time Spent with Patient Total time spent is greater than 50% in coordination of care (as documented) at patient's floor/unit and/or counseling patient: 25 - 35 minutes Plan of Care Discussed with: patient Internal Medicine: Result - Labs CBC & Chem 7: 04/10/18 05:13 04/10/18 05:13 Labs: Short CBC 04/10/18 Range/Units 05:13 WBC 6.8 (4.3-11.1) K/mcL Hgb 12.5 (11.5-15.4) g/dL Hct 37.8 (35.3-44.9) % Plt Count 148 (140-400) K/mcL Neutrophils # 4.7 (1.6-8.9) K/mcL BMP 04/10/18 05:13 Sodium 135 L Potassium 3.8 Chloride 106 Carbon Dioxide 21 L BUN 10 Creatinine 0.48 L Glucose 235 H Calcium 8.8 Consult Discharge Plan - Plan Referrals: Gabrielle Sawyer MD [Primary Care Provider] - 04/20/18 10:00 am () (1) Urinary tract infection Qualifiers: Urinary tract infection type: site unspecified Hematuria presence: without hematuria Qualified Code(s): N39.0 - Urinary tract infection, site not specified (2) Altered mental status, unspecified Qualifiers: Altered mental status type: disorientation Qualified Code(s): R41.0 - Disorientation, unspecified (5) Diabetes mellitus Qualifiers: Diabetes mellitus type: type 2 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
[2018-04-10] MEDS: Insulin LISPRO 300 UNITS/3 ML VIAL SQ SCH ×3 (10:38→18:39)
[2018-04-10] MEDS: valACYclovir 500 MG TABLET PO SCH ×3 (10:39→21:35)
[2018-04-10] MEDS: Fluticasone Propionate Nasal 50 MCG/SPRAY BOTTLE NS SCH (10:39)
[2018-04-10] MEDS: Multivit/Ca/Min/Fe/FA 1 TAB TABLET PO SCH (10:39)
[2018-04-10] MEDS: Aspirin Enteric Coated 81 MG Tablet PO SCH (10:39)
--- NOTE | 2018-04-10 15:45 | Electrocardiograph Report ---
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
[2018-04-10] MEDS ORDERED: methylPREDNISolone 125 MG/2 ML VIAL IVP ONE (16:41)
[2018-04-10] MEDS: cefTRIAXone 1,000 MG in Water for inj. (sterile) 20 ML 10 ML IVP SCH (18:38)
[2018-04-10] MEDS ORDERED: diazePAM 10 MG/2 ML SYRINGE IVP ONE (22:23)
[2018-04-11] MEDS ORDERED: Haloperidol Lactate 5 MG/ML VIAL IM ONE (04:44)
[2018-04-11 05:04] LABS: Basophils % 0.1 %; Hematocrit 38.7 % (35.3-44.9); Hemoglobin 12.8 g/dL (11.5-15.4); Immature Granulocytes % 0.7 % (0-4); Lymphocytes # 1.2 K/mcL (0.6-4.6); Lymphocytes % 15.7 %; Mean Corpuscular HGB Conc 33.1 g/dL (31.6-35.5); Mean Corpuscular Hemoglobin 28.6 pg (28.0-33.3); Mean Corpuscular Volume 86.6 fL (83.0-100.0); Mean Platelet Volume 10.2 fL (9.4-12.4); Monocytes # 0.2 K/mcL (0.0-1.3); Platelet Count 152 K/mcL (140-400); Red Blood Count 4.47 M/mcL (3.82-4.97); Red Cell Distribution Width 13.7 % (11.5-14.5); Segmented Neutrophils % 81.5 %
[2018-04-11 05:23] LABS: BUN/Creatinine Ratio 26 (6-26); Blood Urea Nitrogen 14 mg/dL (8-23); Calcium 9.2 mg/dL (8.6-10.3); Carbon Dioxide 22 mEq/L (23-29); Chloride 107 mEq/L (98-107); Glucose 332 mg/dL (70-105); Osmolality,Calculated 295 (280-300); Platelet Estimate Normal (Normal); Potassium 3.7 mEq/L (3.5-5.1); Sodium 136 mEq/L (136-145); eGFR For Non-African Americans > 60 (> 60)
[2018-04-11] MEDS: MethylPREDNISolone 40 MG/ML VIAL IVP SCH ×2 (07:54→16:35)
[2018-04-11] MEDS: *HR* Heparin 5,000 UNIT/ML VIAL SQ SCH ×3 (07:54→22:50)
--- NOTE | 2018-04-11 10:45 | Internal Med Progress Note ---
Hospitalist Progress Note - Encounter Date of Encounter: 04/11/18 Time of Encounter: 10:42 - Subjective Interval History: Patient admitting to dysuria and shingles. She is a poor historian due to dementia, unable to reach family. Now reporting pain in right flank, RLQ abdomen and RLE this is 2/2 shingles. Will attempt to contact POA this morning to Discussed plan of care. - Exam Vitals: Temp Pulse Resp BP Pulse Ox 97.8 F 91 16 153/71 95 04/11/18 03:45 04/11/18 03:45 04/11/18 03:45 04/11/18 03:45 04/11/18 03:45 Exam: PHYSICAL EXAMINATION: GENERAL: The patient is an elderly, confused obese female in no apparent distress. She is alert to self and somewhat oriented to place today HEENT: Head is normocephalic and atraumatic. Extraocular muscles are intact. Pupils are equal, round, and reactive to light and accommodation NECK: Supple. No carotid bruits. No lymphadenopathy or thyromegaly. LUNGS: Clear to auscultation. HEART: Regular rate and rhythm, S1, S2 without murmur. ABDOMEN: Soft, nontender, and nondistended. Positive bowel sounds. No hepatosplenomegaly was noted. 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 Rash is disseminated, dry and has areas of crusting, no additional spread overnight - Assessment and Plan (1) Urinary tract infection Current Visit: Yes Status: Acute Assessment and Plan: Patient presents from family physician, concerns for UTI endorsed dysuria on admission, however given mental status is difficult to assess for any additional urinary symptoms Urinalysis with large leukocyte esterase has remained agebrile, Continues to be nontoxic and remains hemodynamically stable, WBC 6.8 stop Rocephin 1 g daily (received 3 total doses) Urine cultures negative for growth urine sent for culture; pending; follow, adjust antibiotics accordingly Daily labs IV fluids (2) Altered mental status, unspecified Current Visit: Yes Status: Acute Assessment and Plan: Altered mental status likely secondary to underlying UTI; however has baseline confusion 2/2 dementia; sundowners; unclear whether or not mental status is altered above baseline No family at bedside at this time, will again attempt to contact POA to discuss POC as well as d/c planning Patient has right-sided facial droop but according to family appears to be chronic 2/2 Iyer's palsy. No new neuro deficits CT scan of the head was unremarkable for any acute changes. Chest x-ray was unremarkable. Patient does have not have evidence of a toxic or metabolic derangement to explain her symptoms Monitor for further changes of mental status ss- concult for d/c planning (3) Dementia Current Visit: Yes Status: Acute Assessment and Plan: Chronic, worse in the evenings, likely sundowning. Unclear of Baseline mental status. Continue home dementia meds (4) Diabetes mellitus Current Visit: Yes Status: Acute Assessment and Plan: Per history, Blood glucose elevated Elevations in blood glucose likely secondary to addition of IV steroids Continue closely monitor, continue current Sliding scale insulin (5) SunDown syndrome Current Visit: Yes Status: Acute Assessment and Plan: combative and confused in the evenings d/c restraints that were applied overnight; calm and cooperative now (6) Combative behavior Current Visit: Yes Status: Acute Assessment and Plan: as above (7) Shingles Current Visit: Yes Status: Acute Assessment and Plan: Large erythematous rash with pustules and vesicles and minimal crust; disseminated, Rash begins near the spine and spreads anteriorly along the right flank. now on Rt low abdomen pain, burning associated with rash;Pain worse today, with pain in RLE with movement or palpation Continue contact/droplet precautions 04/11--no continuation of spread of rash overnight, appears to be improving with the addition of iv steroids -Continue with valacyclovir treatment 1000mg TID -Consult infectious disease for further evaluation and recommendations (8) Rash and nonspecific skin eruption Current Visit: Yes Status: Acute Assessment and Plan: As above (9) DVT prophylaxis Current Visit: Yes Status: Acute Assessment and Plan: cont Subcutaneous heparin - Time Spent with Patient Total time spent is greater than 50% in coordination of care (as documented) at patient's floor/unit and/or counseling patient: less than 15 minutes Plan of Care Discussed with: patient Internal Medicine: Result - Labs CBC & Chem 7: 04/11/18 04:01 04/11/18 04:01 Labs: Short CBC 04/11/18 Range/Units 04:01 WBC 7.3 (4.3-11.1) K/mcL Hgb 12.8 (11.5-15.4) g/dL Hct 38.7 (35.3-44.9) % Plt Count 152 (140-400) K/mcL Neutrophils # 6.0 (1.6-8.9) K/mcL BMP 04/11/18 04:01 Sodium 136 Potassium 3.7 Chloride 107 Carbon Dioxide 22 L BUN 14 Creatinine 0.53 L Glucose 332 H Calcium 9.2 Consult Discharge Plan - Plan Referrals: Gabrielle Sawyer MD [Primary Care Provider] - 04/20/18 10:00 am () (1) Urinary tract infection Qualifiers: Urinary tract infection type: site unspecified Hematuria presence: without hematuria Qualified Code(s): N39.0 - Urinary tract infection, site not specified (2) Altered mental status, unspecified Qualifiers: Altered mental status type: disorientation Qualified Code(s): R41.0 - Disorientation, unspecified (4) Diabetes mellitus Qualifiers: Diabetes mellitus type: type 2 Diabetes mellitus senior living insulin use: without senior living use Diabetes mellitus complication status: without complication Qualified Code(s): E11.9 - Type 2 diabetes mellitus without complications (7) Shingles Qualifiers: Herpes zoster complications: disseminated zoster Qualified Code(s): B02.7 - Disseminated zoster
[2018-04-11] MEDS: Multivit/Ca/Min/Fe/FA 1 TAB TABLET PO SCH (11:17)
[2018-04-11] MEDS: Fluticasone Propionate Nasal 50 MCG/SPRAY BOTTLE NS SCH (11:17)
[2018-04-11] MEDS: valACYclovir 500 MG TABLET PO SCH ×3 (11:17→22:49)
[2018-04-11] MEDS: Insulin LISPRO 300 UNITS/3 ML VIAL SQ SCH ×4 (11:17→22:49)
[2018-04-11] MEDS: Aspirin Enteric Coated 81 MG Tablet PO SCH (11:17)
[2018-04-11] MEDS ORDERED: diazePAM 10 MG/2 ML SYRINGE IVP ONE (23:12)
[2018-04-12] MEDS: *HR* Heparin 5,000 UNIT/ML VIAL SQ SCH ×3 (06:30→21:04)
[2018-04-12] MEDS: MethylPREDNISolone 40 MG/ML VIAL IVP SCH (06:30)
[2018-04-12] MEDS: Insulin LISPRO 300 UNITS/3 ML VIAL SQ SCH ×4 (08:28→20:22)
[2018-04-12] MEDS: Multivit/Ca/Min/Fe/FA 1 TAB TABLET PO SCH (08:30)
[2018-04-12] MEDS: Fluticasone Propionate Nasal 50 MCG/SPRAY BOTTLE NS SCH (08:30)
[2018-04-12] MEDS: valACYclovir 500 MG TABLET PO SCH ×3 (08:30→21:03)
[2018-04-12] MEDS: Aspirin Enteric Coated 81 MG Tablet PO SCH (08:30)
--- NOTE | 2018-04-12 08:44 | Discharge Summary ---
- NOTES TO OUTPATIENT PROVIDER Notes to Outpatient Provider: Shingles dx at admission, tx with valacyclovir. Please f/u on shingles to assess for improvement or worsening of patient's conditions Date of Encounter: 04/12/18 Time of Encounter: 08:42 - Discharge Diagnosis (1) Shingles Priority: Primary Status: Acute Assessment and Plan: Large erythematous rash with pustules and vesicles and minimal crust; disseminated, Rash begins near the spine and spreads anteriorly along the right flank. now on Rt low abdomen pain, burning associated with rash;Pain worse today, with pain in RLE with movement or palpation Continue contact/droplet precautions 04/12--Shingles rash continues to improve; Valacyclovir initiated within 72 hours of rash. Continue with 4 more day of Valacyclovir treatment. Patient to d/c with home health. Had AMS on admission; now back to baseline. no continuation of spread of rash overnight, appears to be improving with the addition of iv steroids. She will d/c with home health. Awaiting family choice of agency then okay to d/c Qualifiers: Herpes zoster complications: disseminated zoster Qualified Code(s): B02.7 - Disseminated zoster (2) Altered mental status, unspecified Priority: Secondary Status: Acute Qualifiers: Altered mental status type: disorientation Qualified Code(s): R41.0 - Disorientation, unspecified (3) Urinary tract infection Priority: Secondary Status: Acute Qualifiers: Urinary tract infection type: site unspecified Hematuria presence: without hematuria Qualified Code(s): N39.0 - Urinary tract infection, site not specified (4) Dementia Priority: Secondary Status: Acute Qualifiers: Qualified Code(s): F03.90 - Unspecified dementia without behavioral disturbance (5) Diabetes mellitus Priority: Secondary Status: Acute Qualifiers: Diabetes mellitus type: type 2 Diabetes mellitus half-way insulin use: without lobsterman use Diabetes mellitus complication status: without complication Qualified Code(s): E11.9 - Type 2 diabetes mellitus without complications (6) SunDown syndrome Priority: Secondary Status: Acute (7) Combative behavior Priority: Secondary Status: Acute (8) Rash and nonspecific skin eruption Priority: Secondary Status: Acute (9) DVT prophylaxis Priority: Secondary Status: Acute Hospital course: Ms. Scott is a 77 year old female who presented with altered mental status and a painful, erythematous rash. Was found to have shingles and suspected to have a UTI. Urine cultures with no growth, but she received 3-days of IV ABX prior to final culture results. Additionally, she has received Valacyclovir 1000mg TID x3 days and will be d/c'd with an additional 4-days worth of dosing. Zosters rash improving and beginning to crust over. Continues to have discomfort but is improving. Back to baseline mental status. Will d/c with home health. Basic d/c f/u with PCP. Discharge discussed with: patient, nurse - Time Spent with Patient Total time spent providing and/or coordinating discharge services: Less than 30 minutes - Discharge Medications Prescriptions: valACYclovir [Valtrex] 1,000 mg PO TID 4 Days #12 tablet valACYclovir [Valtrex] 1,000 mg PO TID 4 Days #24 tablet Home Medications: Aspirin Enteric Coated [Aspirin EC] 81 mg PO DAILY 04/08/18 [History] Atorvastatin [Lipitor] 40 mg PO HS 04/08/18 [History] Docusate Sodium [Stool Softener] 100 mg PO DAILY PRN 04/08/18 [History] Fluticasone Propionate Nasal [Flonase] 1 spr NS DAILY 04/08/18 [History] Gabapentin [Neurontin] 100 mg PO TID 04/08/18 [History] Insulin Glargine,Hum.rec.anlog [Lantus Solostar] 23 units SQ DAILY 04/08/18 [ History] Memantine [Namenda] 5 mg PO BID 04/08/18 [History] Multivit-Min/FA/Lycopen/Lutein [Centrum Silver Tablet] 1 tab PO DAILY 04/08/18 [ History] Sertraline [Zoloft] 100 mg PO DAILY 04/08/18 [History] metFORMIN [Glucophage] 500 mg PO TIDWM 04/08/18 [History] Dorzolamide/Timolol [Cosopt] 1 drop BOTH EYES BID 04/09/18 [History] valACYclovir [Valtrex] 1,000 mg PO TID 4 Days #12 tablet 04/12/18 [Rx] valACYclovir [Valtrex] 1,000 mg PO TID 4 Days #24 tablet 04/12/18 [Rx] Allergies/Adverse Reactions: 3 Allergy/AdvReac Type Severity Reaction Status Date / Time No Known Allergies Allergy Verified 04/08/18 17:22 Date of admission: 04/09/18 04:03 Primary care physician: Gabrielle Sawyer MD Consults: 04/09/18 11:03 Consult to Occupational Therapy [CONS] Routine Comment: Evaluate, develop and implement POC Reason for Consult: weakness Does patient have active BEDREST order?: No Is patient medically & hemodynamically stable?: Yes Consult to Physical Therapy [CONS] Routine Comment: Evaluate, develop and implement POC Reason for Consult: weakness Does patient have active BEDREST order?: No Is patient medically & hemodynamically stable?: Yes 04/10/18 08:47 Consult to Infectious Diseases [CONS] Routine Consulting Provider: [facility] Reason for Consult: Disseminated shingles Time Notified: 08:48 Call Completed: Yes Discharging clinician: Flavio Mckeon Anticipated date of discharge: 04/12/18 - Constitutional Vitals: Temp Pulse Resp BP Pulse Ox 99.7 F H 73 18 160/75 94 04/12/18 08:02 04/12/18 08:02 04/12/18 08:02 04/12/18 08:02 04/12/18 08:02 Exam: PHYSICAL EXAMINATION: GENERAL: The patient is an elderly, confused obese female in no apparent distress. She is alert to self and somewhat oriented to place today HEENT: Head is normocephalic and atraumatic. Extraocular muscles are intact. Pupils are equal, round, and reactive to light and accommodation NECK: Supple. No carotid bruits. No lymphadenopathy or thyromegaly. LUNGS: Clear to auscultation. HEART: Regular rate and rhythm, S1, S2 without murmur. ABDOMEN: Soft, nontender, and nondistended. Positive bowel sounds. No hepatosplenomegaly was noted. 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 Mental status returning to baseline. Pain at site of Zosters rash, extending into RLE PSYCHIATRIC: Pseudobulbar affect with periods of laughing, inappropriately to situation. This is her baseline SKIN: raised erythematous clustered rash with vesicles and pustules on Rt flank , (L5-S1 dermatome) Rt lower abdomen with minimal crust, Rash is continuing to improve. - Patient Status Disposition: Home Health Service Condition: Fair Functional capacity at discharge: uses cane/walker Overall status at discharge: patient is progressing back to baseline - Discharge Instructions Follow Up With: Gabrielle Sawyer MD [Primary Care Provider] - 04/20/18 10:00 am () - Diet and Activity Activity: increase activity as tolerated, resume usual activities as tolerated Diet: diabetic diet, low fat, low cholesterol, low salt diet
--- NOTE | 2018-04-12 17:56 | Physician Discharge Referral ---
Home Health/Hosp Referral Info Transfer to: Home Health Attending Provider: [facility] Provider in Charge Post Discharge: PCP - Diagnosis (1) Shingles Priority: Primary Status: Acute (2) Altered mental status, unspecified Priority: Secondary Status: Acute (3) Urinary tract infection Priority: Secondary Status: Acute (4) Dementia Priority: Secondary Status: Acute (5) Diabetes mellitus Priority: Secondary Status: Acute (6) SunDown syndrome Priority: Secondary Status: Acute (7) Combative behavior Priority: Secondary Status: Acute (8) Rash and nonspecific skin eruption Priority: Secondary Status: Acute (9) DVT prophylaxis Priority: Secondary Status: Acute - Respiratory Orders Smoking Cessation: Smoking cessation has been advised. For more information, call the [place] Tobacco Quit Line at 5-564-JVUF-NOW. - Diet/Nutrition Diet/Nutrition Orders: Cardiac, No Concentrated Sweets - Activity Activity Orders: Up ad matt, Ambulate - Services Needed Following services are medically necessary services: Nursing - Transfer Medications Prescriptions: valACYclovir [Valtrex] 1,000 mg PO TID 4 Days #12 tablet valACYclovir [Valtrex] 1,000 mg PO TID 4 Days #24 tablet Home Medications: Aspirin Enteric Coated [Aspirin EC] 81 mg PO DAILY 04/08/18 [History] Atorvastatin [Lipitor] 40 mg PO HS 04/08/18 [History] Docusate Sodium [Stool Softener] 100 mg PO DAILY PRN 04/08/18 [History] Fluticasone Propionate Nasal [Flonase] 1 spr NS DAILY 04/08/18 [History] Gabapentin [Neurontin] 100 mg PO TID 04/08/18 [History] Insulin Glargine,Hum.rec.anlog [Lantus Solostar] 23 units SQ DAILY 04/08/18 [ History] Memantine [Namenda] 5 mg PO BID 04/08/18 [History] Multivit-Min/FA/Lycopen/Lutein [Centrum Silver Tablet] 1 tab PO DAILY 04/08/18 [ History] Sertraline [Zoloft] 100 mg PO DAILY 04/08/18 [History] metFORMIN [Glucophage] 500 mg PO TIDWM 04/08/18 [History] Dorzolamide/Timolol [Cosopt] 1 drop BOTH EYES BID 04/09/18 [History] valACYclovir [Valtrex] 1,000 mg PO TID 4 Days #12 tablet 04/12/18 [Rx] valACYclovir [Valtrex] 1,000 mg PO TID 4 Days #24 tablet 04/12/18 [Rx] Allergies/Adverse Reactions: 3 Allergy/AdvReac Type Severity Reaction Status Date / Time No Known Allergies Allergy Verified 04/08/18 17:22 Certification: Further, I certify that my clinical findings support that this patient is homebound (i.e. absences from home require considerable and taxing effort and are for medical reasons or muslim services or infrequently or short duration when for other reasons) because: Homebound Reason: Patient requires assistance of a person or device to safely leave home Attestation: My signature below is to certify that this patient is under my care and that I, or nurse practitioner, or a physician's primary teaching assistant working with me, has a face-to -face encounter with this patient.
[2018-04-12] MEDS: Ibuprofen 400 MG TABLET PO PRN (22:51)
[2018-04-13] MEDS: *HR* Heparin 5,000 UNIT/ML VIAL SQ SCH (05:35)
[2018-04-13] MEDS: Fluticasone Propionate Nasal 50 MCG/SPRAY BOTTLE NS SCH (07:43)
[2018-04-13] MEDS: Insulin LISPRO 300 UNITS/3 ML VIAL SQ SCH ×2 (07:44→11:47)
[2018-04-13] MEDS: Aspirin Enteric Coated 81 MG Tablet PO SCH (07:44)
[2018-04-13] MEDS: Ibuprofen 400 MG TABLET PO PRN (07:45)
[2018-04-13] MEDS: valACYclovir 500 MG TABLET PO SCH (07:45)
[2018-04-13] MEDS: Multivit/Ca/Min/Fe/FA 1 TAB TABLET PO SCH (07:45)
[2018-04-13 10:23] VITALS: BP 101/52
== END 2018-04-13 13:28 | disposition home health service (06) | DRG 866 ==
LOC: EMEROOARM 17:11 → 3BNU 17:11 → SUATTDRO 04-09 04:03 → 3ANU 04-09 12:42
PROVIDERS: ADMIT Internal Medicine; ATTEND Internal Medicine